=== PATIENT | male | born 1955 | race Caucasian/White ===

== ENCOUNTER 2016-04-16 15:20 | Emergency (ER) | payer OTHER ==
[~2016-04-16] VITALS: Ht 180.3 cm; Wt 79.4 kg
[~2016-04-16 15:20] MED LIST: ASPIR 8181 MG PO; MULTIVITAMIN1 TAB PO; NORCO 325 MG-51 TAB PO; SIMVASTATIN10 MG PO
--- NOTE | 2016-04-16 15:35 | ED AMS/SEIZURE/WEAK/DIZZY ---
History of Present Illness General Chief Complaint: Seizure Stated Complaint: BIBA SEIZURE Source: patient, old records, EMS Exam Limitations: no limitations Vital Signs & Intake/Output Vital Signs & Intake/Output Vital Signs Date Time Temp Pulse Resp B/P Pulse O2 O2 Flow FiO2 Ox Delivery Rate 04/16 1734 96.7 90 18 122/82 99 Nasal 2.0L Cannula 04/16 1528 96.7 97 18 127/76 100 Room Air Allergies Coded Allergies: ibuprofen (UPSETS STOMACH 04/16/16) rofecoxib (RASH 04/16/16) tramadol (SEIZURE 04/16/16) Reconcile Medications Multivitamin (Multiple Vitamins) 1 EACH TABLET 1 TAB PO DAILY SUPPLEMENT ( Reported) Triage Note: 60 YO MALE NI FROM HOME. PT HAD WITNESSED SEIZURE BY HIS MOTHER WHILE LAYING ON THE COUCH. PT DID NOT FALL, NO INJURIES NOTED. ON EMS ARRIVAL PT WAS POST ICTLE. PT ARRIVES ALERT AND ORIENTED X3. STATES HE HAS HAD SEIZURES IN THE PAST AND THEY THINK ITS FROM HIM TAKING ?TRAMADOL. PT DENIES DRUG/ALCOHOL USE. SEIZURE PRECAUTIONS IN PLACE. Triage Nurses Notes Reviewed? yes Onset: Just prior to arrival Duration: minute(s): Timing: remote history Injury Environment: home Severity: moderate No Modifying Factors: none HPI: Patient is a 60-year-old male presenting to the emergency department with chief complaint of seizure prior to arrival. Patient reports that he was laying on the couch, his seizure was witnessed. Lasted a few minutes and then resolved. History of similar symptoms several years ago. He reports that it was from tramadol at that point. He reports he's been on tramadol for pain for the past several days. He said it was "left over' from an old injury. He's been taking 3 a day for the past 3-4 days. Patient denies any urinary incontinence. Denies any falls or pain. No neck pain back pain. No visual changes. Denies any abdominal pain nausea vomiting or fevers. Otherwise has been feeling well. No palpitations. Denies any drug use. Denies alcohol use or smoking. (CLARE FERRERA) Past History Travel History Traveled to [place] past 21 day No Medical History Any Pertinent Medical History? see below for history Neurological: NONE EENT: NONE Cardiovascular: hyperlipidemia Respiratory: NONE Gastrointestinal: NONE Hepatic: NONE Renal: NONE Musculoskeletal: NONE Psychiatric: NONE Endocrine: NONE Blood Disorders: NONE Cancer(s): NONE BILINGUAL TRAINER/Reproductive: NONE Surgical History Surgical History: non-contributory Psychosocial History Who do you live with Spouse Services at Home None What is your primary language [place] Tobacco Use: Never used Family History Hx Contributory? No (CLARE FERRERA) Review of Systems Review of Systems Constitutional: Reports: no symptoms. Comments Review of systems: See HPI, All other systems negative. Constitutional, no chills fever or weight loss HEENT: No visual changes no sore throat no congestion Cardiovascular: No chest pain ,palpitation , orthopnea Skin, no jaundice no rashes Respiratory: No dyspnea cough sputum or hemoptysis GI: No nausea no vomiting : No dysuria No hematuria Muscle skeletal: no back pain, no neck pain, Neurologic: No numbness Psych: No stress anxiety Immunology: No splenectomy or history of AIDS (CLARE FERRERA) Physical Exam Physical Exam General Appearance: well developed/nourished, no apparent distress, alert, awake , comfortable Comments: Well-developed well-nourished person in no acute distress HEENT: extraocular motion intact, no nystagmus. Pupils equally round and reactive to light and accommodation, pupils approximately 2 mm each. Nose is atraumatic. External auditory canal and Tympanic membranes clear. Pharynx normal. No swelling or edema. Neck: Supple, no lymphadenopathy, normal range of motion without pain or tenderness Back: Nontender, no CVA tenderness. Full range of motion Cardiovascular: Regular rate and rhythms no murmurs rubs or gallops, normal JVP Respiratory: Chest nontender. No respiratory distress.breath sounds clear to auscultation bilaterally Abdomen: Soft, nontender nondistended, no appreciable organomegaly. Normal bowel sounds. No ascites Extremity: No edema, no calf tenderness to palpation, normal and equal pulses. Neuro: Alert oriented x3, motor sensory normal, cranial nerves II through XII grossly intact. Cerebellar testing is unremarkable. Skin: No appreciable rash on exposed skin, skin is warm and dry. Psych: Mood and affect is normal, memory and judgment is normal. Core Measures ACS in differential dx? No CVA/TIA Diagnosis: No Severe Sepsis Present: No Septic Shock Present: No (CLARE FERRERA) Progress Differential Diagnosis: MEDICATION REACTION, EPILEPSY, PNEUMONIA, CARDIOMEGALY, CARDIAC ARRHYTHMIA, DEHYDRATION, ORTHOSTATIC HYPOTENSION Plan of Care: Orders Procedure Date/time Status EKG 04/16 174 Active Add-on Test (ER Only) 04/16 1738 Active PROLACTIN 04/16 1602 Complete MISTAKE 04/16 1535 Active Telemetry/[employer] Packages Sealer 04/16 1535 Active URINE DRUG SCREEN FOR ER ONLY 04/16 1535 Active URINALYSIS 04/16 1535 Active TROPONIN LEVEL 04/16 1535 Complete COMPREHENSIVE METABOLIC PANEL 04/16 1535 Complete CBC WITHOUT DIFFERENTIAL 04/16 1535 Complete Laboratory Tests 04/16/16 1602: Anion Gap 20 H, Estimated GFR > 60, BUN/Creatinine Ratio 14.0, Glucose 159 H, Calcium 9.6, Total Bilirubin 0.7, AST 23, ALT 26, Alkaline Phosphatase 94, Troponin I < 0.01, Total Protein 7.7, Albumin 4.6, Globulin 3.1, Albumin/ Globulin Ratio 1.5, Prolactin 48.9 H, CBC w Diff NO MAN DIFF REQ, RBC 4.64 L, MCV 89.8, MCH 30.2, RDW 13.4, MPV 7.2 L, Gran % 68.4, Lymphocytes % 25.3, Monocytes % 5.5, Eosinophils % 0.5, Basophils % 0.3, Absolute Granulocytes 5.7, Absolute Lymphocytes 2.1, Absolute Monocytes 0.5, Absolute Eosinophils 0, Absolute Basophils 0, PUBS MCHC 33.6 Diagnostic Imaging: Viewed by Me: Radiology Read. Discussed w/RAD: Radiology Read. Initial ED EKG: NORMAL SINUS RHYTHM AT 92 BPM Prior EKG: unchanged Comments: On arrival patient is alert and oriented, neurologically intact. No focal deficits. Ambulatory without difficulty. Patient has had history of seizure in the past secondary to tramadol use and patient reports using tramadol over the past several days for pain. Patient was informed of all lab results. Patient refusing urinalysis. Patient educated on stopping tramadol use. He will follow-up with his primary care physician. Patient nontoxic. (RANCHO MEDRANO,CLARE) Departure Departure Time of Disposition: 1742 Disposition: HOME OR SELF CARE Condition: Stable Clinical Impression Primary Impression: Seizure Referrals: MUNIR CASAS (PCP/Family) Additional Instructions: Follow-up with your primary care physician call to make an appointment, if he is unable to see her primary care physician in the next 24 hours return to the emergency department for evaluation. Increase fluids. Stop taking tramadol. Return for worsening symptoms or concerns. Departure Forms: Customer Survey General Discharge Information (CLARE FERRERA) PA/SEQUENCING MACHINE OPERATOR Co-Sign Statement Statement: ED Attending supervision documentation- x I saw and evaluated the patient. I have also reviewed all the pertinent lab results and diagnostic results. I agree with the findings and the plan of care as documented in the PA's/SEQUENCING MACHINE OPERATOR's documentation. [] I have reviewed the ED Record and agree with the PA's/SEQUENCING MACHINE OPERATOR's documentation. [] Additions or exceptions (if any) to the PAs/SEQUENCING MACHINE OPERATOR's note and plan are summarized below: [] (MILDRED LOPEZ,CHANDRA)
--- NOTE | 2016-04-16 16:03 | RADIOLOGY REPORT ---
EXAMINATION: XR CHEST CLINICAL INFORMATION: Syncope. Evaluate for cardiomegaly. COMPARISON: None. TECHNIQUE: PA and lateral views of the chest were obtained. FINDINGS: The lungs are well expanded. There is no focal consolidation, edema, or effusion. No pneumothorax. The cardiomediastinal silhouette is within normal limits. No acute osseous abnormality. IMPRESSION: Clear lungs. Normal heart size.
[2016-04-16 16:23] LABS: ABSOLUTE BASOPHIL COUNT 0 /CUMM (0.0-0.2); ABSOLUTE EOSINOPHIL COUNT 0 /CUMM (0.0-0.7); ABSOLUTE GRANULOCYTE CT 5.7 /CUMM (1.4-6.5); ABSOLUTE LYMPH COUNT 2.1 /CUMM (1.2-3.4); ABSOLUTE MONOCYTE COUNT 0.5 /CUMM (0.10-0.60); BASOPHIL % 0.3 % (0.0-2.0); EOSINOPHIL % 0.5 % (0-5); GRANULOCYTE % 68.4 % (42.2-75.2); HEMATOCRIT 41.6 % (42-52); MEAN CORPUSCULAR HGB 30.2 PG (27.0-31.0); MEAN CORPUSCULAR HGB CONC 33.6 G/DL (33.0-37.0); MEAN CORPUSCULAR VOLUME 89.8 FL (80.0-94.0); MEAN PLATELET VOLUME 7.2 FL (7.4-10.4); PLATELET COUNT 330 /CUMM (130-400); RBC DISTRIBUTION WIDTH 13.4 % (11.5-14.5); RED BLOOD CELL CT 4.64 /CUMM (4.70-6.10); WHITE BLOOD CELL COUNT 8.4 /CUMM (4.8-10.8)
[2016-04-16 17:34] VITALS: BP 122/82
== END 2016-04-16 18:10 ==
LOC: ERH 15:20
PROVIDERS: Physician Assistant
DX: R56.9 Unspecified convulsions (principal)
CPT/HCPCS: 80307; 93005; 93010; 96374; J2405

== ENCOUNTER 2017-11-02 12:42 | Inpatient (IN) | payer OTHER ==
[~2017-11-02] VITALS: Ht 180.3 cm; Wt 69.9 kg
[~2017-11-02 12:42] MED LIST changes: +ATIVAN1 M1 PO; +MULTIPLE VITAM1 EAC2 PO; -MULTIVITAMIN1 TAB PO; +ZANTAC300 MG PO
--- NOTE | 2017-11-02 12:50 | ED GENERAL ADULT ---
History of Present Illness General Chief Complaint: ETOH/Drug Related Complaint Stated Complaint: BIBA, ETOH, UNRESPONSIVE Source: family, old records, EMS, police Exam Limitations: intoxication Vital Signs & Intake/Output Vital Signs & Intake/Output Vital Signs Date Time Temp Pulse Resp B/P B/P Pulse O2 O2 Flow FiO2 Mean Ox Delivery Rate 11/03 08 98.0 85 18 122/64 11/03 0800 98.3 88 18 122/64 11/03 0410 98.9 84 20 120/70 97 Room Air 11/03 0200 98.1 69 18 140/79 11/03 0200 98.1 69 18 140/79 94 Room Air 11/03 0000 118 18 128/70 11/02 2358 97.6 118 20 128/70 99 Room Air 11/02 2353 97.6 124 20 140/82 11/02 2326 98.0 124 20 132/90 99 Room Air 11/02 2255 98.0 130 22 144/90 11/02 2142 98.3 118 16 128/67 99 Room Air 11/02 1858 98.1 107 16 131/74 99 Room Air 11/02 1623 136/91 11/02 1442 96.9 106 15 139/97 98 Room Air Room Air 11/02 1312 98 Room Air 11/02 1244 96.6 109 19 125/80 95 Room Air ED Intake and Output 11/03 0000 11/02 1200 Intake Total 2000 Output Total 400 Balance 1600 Intake, IV 2000 Intake, Oral Output, Urine 400 Allergies Coded Allergies: ibuprofen (UPSETS STOMACH 04/16/16) Triage Nurses Notes Reviewed? yes HPI: Patient was found unresponsive at home with a empty bottle of vodka next to him. There is also question of taking tramadol. Patient was given 0.8 mg of IV Narcan by the diver helper. The diver helper states that as he was actively pushing the Narcan the patient sat up and looked at him but then later back down and went back to sleep. Patient has been protecting his airway. Patient is nonresponsive and not following any commands. Patient was sitting on the couch when he felt was found. (David LOPEZ,Lico Loredo) Reconcile Medications Multivitamin (Multiple Vitamins) 1 EACH TABLET 1 TAB PO DAILY VITAMIN SUPPORT (Reported) Ranitidine HCl (Zantac) 300 MG TABLET 1 TAB PO QPM STOMACH ACID (Jose Collins DO) Past History Travel History Traveled to [place] past 21 day No Medical History Any Pertinent Medical History? see below for history Neurological: NONE EENT: NONE Cardiovascular: hyperlipidemia Respiratory: NONE Gastrointestinal: NONE Hepatic: NONE Renal: NONE Musculoskeletal: NONE Psychiatric: NONE Endocrine: NONE Blood Disorders: NONE Cancer(s): NONE ART SPECIALIST/Reproductive: NONE Surgical History Surgical History: non-contributory Psychosocial History Who do you live with Spouse Services at Home None What is your primary language Hungarian Tobacco Use: Cognitive Impairment Family History Hx Contributory? No (David LOPEZ,Lico Loredo) Review of Systems Review of Systems Constitutional: Reports: see HPI. (David LOPEZ,Lico Loredo) Physical Exam Physical Exam General Appearance: lethargic, intoxicated Head: atraumatic, normal appearance Eyes: Bilateral: PERRL, EOMI. Ears, Nose, Throat: normal pharynx, normal ENT inspection Neck: normal inspection, supple Respiratory: normal breath sounds, no respiratory distress, lungs clear Cardiovascular: regular rate/rhythm, normal peripheral pulses Gastrointestinal: normal bowel sounds, soft, no organomegaly Back: normal inspection Extremities: normal inspection, normal capillary refill, normal range of motion, no edema Neurologic/Psych: UNRESPONSIVE, BUT WILLOPENHIS EYES,BUT NOT TO COMMAND Skin: intact, normal color, warm/dry Core Measures ACS in differential dx? No CVA/TIA Diagnosis: No Sepsis Present: No Sepsis Focused Exam Completed? No (David LOPEZ,Lico Loredo) Progress Differential Diagnoses I considered the following diagnoses in my evaluation of the patient: [ INTOXICATION, AMI, ELECTROLYTE ABNORMALITY] Plan of Care: Orders Procedure Date/time Status Regular Diet 11/03 B Active Change service to 11/03 0821 Active MAGNESIUM 11/03 06 Active BASIC ELECTROLYTES PLUS BUN&CR 11/03 0600 Active Weight 11/03 033 Complete Vital Signs 11/03 338 Active Teach/Educate 11/03 338 Active Pain Treatment and Response 11/03 338 Active Nutritional Intake, Monitor 11/03 338 Active Isolation 11/03 338 Active Intake & Output 11/03 338 Active Patient Care Conference 11/03 338 Active Activity/Ambulation 11/03 338 Active Pathway - chart 11/03 0145 Active Lab Add-on Test 11/03 0003 Active House Staff 11/03 UNK Active Lab Add-on Test 11/03 UNK Active VTE Mechanical Prophylaxis 11/03 UNK Active MISSING MEDICATION FORM 11/03 UNK Active SOCIAL WORK CONSULT 11/03 UNK Active PSYCHIATRIC CONSULT 11/03 UNK Active ED Holding Orders 11/02 2343 Active Admit to inpatient 11/02 2343 Active Vital Signs 11/02 2343 Active Code Status 11/02 2343 Active Patient Data 11/02 2340 Active CIWA 11/02 2255 Active Restraint- Discontinue 11/02 1640 Active Restraint- Medical 11/02 1359 Complete Continuous Observation Monitor 11/02 1359 Active Intake & Output 11/02 1305 Active GLYCOSYLATED HGB 11/02 1301 Complete FOLIC ACID 11/02 1301 Complete VITAMIN B12 11/02 1301 Complete Straight Cath 11/02 1249 Complete URINE DRUGS OF ABUSE 11/02 1249 Complete URINALYSIS 11/02 1249 Complete TROPONIN LEVEL 11/02 1249 Complete ETHANOL 11/02 1249 Complete COMPREHENSIVE METABOLIC PANEL 11/02 1249 Complete CBC WITHOUT DIFFERENTIAL 11/02 1249 Complete EKG 11/02 1249 Active Current Medications Sig/Leelee Start time Last Medication Dose Stop Time Status Admin Enoxaparin Sodium 40 MG DAILY 11/03 0900 AC 11/03 (Lovenox) 0810 Famotidine 20 MG DAILY 11/03 0900 AC (Pepcid) Folic Acid 1 MG DAILY 11/03 0900 AC 11/03 (Folic Acid) 0810 Multivitamins 1 TAB DAILY 11/03 0900 AC 11/03 (Theragran Vitamins) 0810 Thiamine HCl 100 MG DAILY 11/03 0430 AC 11/03 (Vitamin B1) 0817 Acetaminophen 650 MG Q6P PRN 11/03 014 AC (Tylenol) Lorazepam See Dose Q1P PRN 11/03 014 AC (Ativan) Insts (1) Lorazepam 2 MG Q6H 11/03 0145 AC 11/03 (Ativan) 0810 Magnesium Oxide 400 MG BID 11/03 014 AC 11/03 (Mag-Ox) 0810 Sodium Chloride 1,000 ML .Q8H 11/03 0145 AC 11/03 (Normal Saline 0.9%) 11/03 0944 0251 Dose Instructions: (1)Lorazepam (Ativan): See admin criteria Laboratory Tests 11/02/17 1301: Serum Alcohol 469.0 11/02/17 1301: Anion Gap 14, Estimated GFR > 60, BUN/Creatinine Ratio 8.3, Glucose 118 H, Hemoglobin A1c 5.7, Calcium 8.5, Total Bilirubin 0.2, AST 51, ALT 24, Alkaline Phosphatase 63, Troponin I 0.01, Total Protein 6.1 L, Albumin 3.5, Globulin 2.6 , Albumin/Globulin Ratio 1.3, Vitamin B12 328, Folate 7.9, CBC w Diff NO MAN DIFF REQ, RBC 3.71 L, MCV 88.6, MCH 30.5, MCHC 34.5, RDW 14.7 H, MPV 6.9 L, Gran % 51.2, Lymphocytes % 40.9, Monocytes % 5.0, Eosinophils % 2.6, Basophils % 0.3, Absolute Granulocytes 5.0, Absolute Lymphocytes 4.0 H, Absolute Monocytes 0.5, Absolute Eosinophils 0.3, Absolute Basophils 0, Urine Opiates Screen < 100, Methadone Screen < 40, Barbiturate Screen < 60, Ur Phencyclidine Scrn < 6.00, Amphetamines Screen < 100, U Benzodiazepines Scrn < 85, Urine Cocaine Screen < 50, Urine Cannabis Screen < 5.00, Urinalysis MOD H, Urine Color STRAW, Urine Clarity CLEAR, Urine pH 6.0, Ur Specific [place] <= 1.005, Urine Protein NEG, Urine Ketones NEG, Urine Nitrite NEG, Urine Bilirubin NEG, Urine Urobilinogen 0.2, Ur Leukocyte Esterase NEG, Ur Microscopic SEDIMENT EXAMINED, Urine RBC RARE , Urine Hemoglobin MOD H, Urine Glucose NEG Initial ED EKG: NSR, nonspecific ST T wave chg Prior EKG: unchanged Hand-Off Endorsed To: Jose Collins DO Endorsed Time: 1899 Pending: other (SOBRIETY) (David LOPEZ,Lico Loredo) Departure Departure Disposition: HOME OR SELF CARE Condition: Stable Clinical Impression Primary Impression: Alcohol intoxication Referrals: Nicolle Ferrer APRN (PCP/Family) Additional Instructions: RETURN IF SYMPTOMS WORSEN OR FOR ANY CONCERNS Departure Forms: Customer Survey General Discharge Information (David LOPEZ,Lico Loredo) Admission Note Spoke With: Javon Gilmore MD Documentation of Exam: Documentation of any treatments & extenuating circumstances including Concerns Regarding Discharge (functional status, medication knowledge or non-compliance, living conditions, etc.) that warrant an admission rather than observation: [The patient needs admission for IV Ativan, and neurology neurology evaluations every 6 hours, seizure precautions] He has his CIWA scores 17 with a 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 No recent admissions for alcohol withdrawal. He was signed out to me by Dr. Hernandez at 7 PM (Jose Collins DO) Critical Care Note Critical Care Note Critical Care Time: non-applicable (David LOPEZ,Lico Loredo)
[2017-11-02 13:16] LABS: ABSOLUTE BASOPHIL COUNT 0 /CUMM (0.0-0.2); ABSOLUTE EOSINOPHIL COUNT 0.3 /CUMM (0.0-0.7); ABSOLUTE MONOCYTE COUNT 0.5 /CUMM (0.10-0.60); BASOPHIL % 0.3 % (0.0-2.0); EOSINOPHIL % 2.6 % (0-5); GRANULOCYTE % 51.2 % (42.2-75.2); MEAN CORPUSCULAR HGB 30.5 PG (27.0-31.0); MEAN CORPUSCULAR HGB CONC 34.5 G/DL (33.0-37.0); MEAN CORPUSCULAR VOLUME 88.6 FL (80.0-94.0); MEAN PLATELET VOLUME 6.9 FL (7.4-10.4); PLATELET COUNT 291 /CUMM (130-400); RBC DISTRIBUTION WIDTH 14.7 % (11.5-14.5); RED BLOOD CELL CT 3.71 /CUMM (4.70-6.10); WHITE BLOOD CELL COUNT 9.9 /CUMM (4.8-10.8)
[2017-11-02 13:53] LABS: HEMATOCRIT 32.8 % (42-52)
[2017-11-02 22:55] VITALS: BP 144/90
--- NOTE | 2017-11-02 23:48 | History & Physical ---
Alex Castillo 11/02/17 0467: General Information and HPI MD Statement: I have seen and personally examined JAMES ALICEA and documented this H&P. The patient is a 62 year old M who presented with a patient stated chief complaint of [intoxicated/unresponsive episode at home]. 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 He later admitted taking several tramadol pills as well. Paramedics gave patient 0.8mg Narcan IV which woke patient up. On interview, patient has no complaints. States that "I am an alcoholic", has good insight into his disease. States he was clean for 15 years, then started drinking, sobered up for another 4 years, and now is drinking again. States "I'm shocked how quickly taking one drink can turn into all of this" . States he was last here on October 30, and has been drinking every day since. States that "I might have overdid it this time". Does admit to some anxiety, fine tremors, but denies any hallucination and paranoia. States he has had many IOP and inpatient rehab stays, but wants to quit and is hopeful this admission will help him wean off alcohol. Denies fevers/chills/night sweats/chest pain/sob/abdominal pain/nausea/vomiting/ diarrhea PMH: as above Allergies: Denies Sx: noncontributory Soc: as above, denies smoking, denies other drug usage ROS negative Past History Travel History Traveled to [place] past 21 day No Medical History Neurological: NONE EENT: NONE Cardiovascular: hyperlipidemia Respiratory: NONE Gastrointestinal: NONE Hepatic: NONE Renal: NONE Musculoskeletal: NONE Psychiatric: NONE Endocrine: NONE Blood Disorders: NONE Cancer(s): NONE FOOD STOREROOM CLERK/Reproductive: NONE Isolation History: Standard Surgical History Surgical History: non-contributory Past Family/Social History Psychosocial History Services at Home: None Review of Systems Review of Systems Constitutional: Reports: see HPI. Exam & Diagnostic Data Last 24 Hrs of Vital Signs/I&O Vital Signs Date Time Temp Pulse Resp B/P B/P Pulse O2 O2 Flow FiO2 Mean Ox Delivery Rate 11/03 0200 98.1 69 18 140/79 11/03 0200 98.1 69 18 140/79 94 Room Air 11/03 0000 118 18 128/70 11/02 2358 97.6 118 20 128/70 99 Room Air 11/02 2353 97.6 124 20 140/82 11/02 2326 98.0 124 20 132/90 99 Room Air 11/02 2255 98.0 130 22 144/90 11/02 2142 98.3 118 16 128/67 99 Room Air 11/02 1858 98.1 107 16 131/74 99 Room Air 11/02 1623 136/91 11/02 1442 96.9 106 15 139/97 98 Room Air Room Air 11/02 1312 98 Room Air 11/02 1244 96.6 109 19 125/80 95 Room Air Intake & Output 11/03 0800 11/03 0000 11/02 1600 Intake Total 1000 2000 Output Total 400 Balance 1000 2000 -400 Intake, IV 1000 2000 Intake, Oral Output, Urine 400 Patient 154 lb Weight Weight Bed scale Measurement Method Physical Exam General Appearance Alert, Oriented X3, Cooperative, No Acute Distress Skin No Rashes Cardiovascular Regular Rate, Normal S1, Normal S2 Lungs Clear to Auscultation, Normal Air Movement Abdomen Soft, No Tenderness Neurological Strength at 5/5 X4 Ext, Sensation Intact Extremities fine tremor noted Last 24 Hrs of Labs/Hal: Laboratory Tests 11/02/17 1301: Serum Alcohol 469.0 11/02/17 1301: Anion Gap 14, Estimated GFR > 60, BUN/Creatinine Ratio 8.3, Glucose 118 H, Hemoglobin A1c Pending, Calcium 8.5, Total Bilirubin 0.2, AST 51, ALT 24, Alkaline Phosphatase 63, Troponin I 0.01, Total Protein 6.1 L, Albumin 3.5, Globulin 2.6, Albumin/Globulin Ratio 1.3, Vitamin B12 328, Folate 7.9, CBC w Diff NO MAN DIFF REQ, RBC 3.71 L, MCV 88.6, MCH 30.5, MCHC 34.5, RDW 14.7 H, MPV 6.9 L, Gran % 51.2, Lymphocytes % 40.9, Monocytes % 5.0, Eosinophils % 2.6, Basophils % 0.3, Absolute Granulocytes 5.0, Absolute Lymphocytes 4.0 H, Absolute Monocytes 0.5, Absolute Eosinophils 0.3, Absolute Basophils 0, Urine Opiates Screen < 100, Methadone Screen < 40, Barbiturate Screen < 60, Ur Phencyclidine Scrn < 6.00, Amphetamines Screen < 100, U Benzodiazepines Scrn < 85, Urine Cocaine Screen < 50, Urine Cannabis Screen < 5.00, Urinalysis MOD H, Urine Color STRAW, Urine Clarity CLEAR, Urine pH 6.0, Ur Specific [place] <= 1.005, Urine Protein NEG, Urine Ketones NEG, Urine Nitrite NEG, Urine Bilirubin NEG, Urine Urobilinogen 0.2, Ur Leukocyte Esterase NEG, Ur Microscopic SEDIMENT EXAMINED, Urine RBC RARE, Urine Hemoglobin MOD H, Urine Glucose NEG Assessment/Plan Assessment: Mr. Alicea is a 62yo M w/ PMH of hx of DT, HLD, alcohol use disorders, hx of SI attempts, presented to ER w/ CC of alcohol intoxication after being sober for 5 years, who recently pickedup drinking and was found unresponsive on 10/30/2017, sent to ER, discharged, continued drinking, and now came back. He was tachycardic in the ED with CIWA scores up to 17 and will be admitted for management of DT as he has had withdrawal seizures in the past. Serum alcohol was 469 on admission. Problem list/Assessment/Hospital Course: #Alcohol detox with history of DT #Chronic normocytic anemia, secondary to alcohol use #History of suicidal attempts #Hypokalemia #Cholelithiasis without acute cholecystitis #PMH of alcohol use disorder, hyperlipidemia - Admit to general medicine - Vitals per protocol, monitor I&O per protocol. - Start Ativan 2mg q 6 and IV Ativan PRN CIWA - Supplements including Folic Acid/B12/Thiamine/Multivitamin - Replete K w/ oral K-dur. - Continue all home meds - Pending Psych Consult in the AM - Pending Social Work consul in the AM - Check folic acid/B12/Mg/PO4-. Will replete if low - Close monitor for seizure activities. - Pain per pathway DVT prophylaxis Lovenox + ALPS Regular Diet IV Access: Peripheral IV Full Code Dispo: unknown As Ranked By This Provider Problem List: 1. Alcohol intoxication 2. Alcohol dependence with intoxication Core Measures/Misc (12/08) Acute Coronary Syndrome ACS Diagnosis: No Congestive Heart Failure Congestive Heart Failure Diagnosis No Cerebrovascular Accident CVA/TIA Diagnosis: No VTE (View Protocol) VTE Risk Factors Age>40 No Mechanical VTE Prophylaxis d/t N/A MechProphylax Ordered No VTE Pharm Prophylaxis d/t NA PharmProphylax ordered Sepsis (View protocol) Sepsis Present: No If YES complete Sepsis Event Note If YES complete Sepsis Event Note Laurel Basurto 11/02/17 2597: Core Measures/Misc (12/08) Sepsis (View protocol) If YES complete Sepsis Event Note If YES complete Sepsis Event Note Resident Review Statement Resident Statement: examined this patient, discussed with internet marketer, agreed with internet marketer, discussed with family, reviewed EMR data (avail), discussed with nursing , discussed with case mgmt, reviewed images, amended to note Other Findings: Mr. 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 Rest of history/ROS as above HPI. Patient presented with a clinical picture of alcohol intoxication with abnormal serum alcohol level, that he might not yet be in DT phase based on this serum alcohol leve/PE, however preventive measure and appropriate alcohol detox process should start and taper per clinical course. On admission, Vitals: Stable afebrile, tachycardia above 100, RR 20, BP 142/90, 95% room air Physical exam as above. Pertinent findings include fine tremors of BUEs, however otherwise grossly normal exam. Patient's fully conversational and has insight regarding his alcohol use disorders. Denied SI. -CBC: No leukocytosis, H/H 11.3/42.8, PLT 291 -CMP: Hypokalemia 3.2, otherwise unremarkable -UA/Microbiology: Clear for UTI. Serum alcohol 469, U tox negative -CT Ab 10/30: Cholelithiasis without additional evidence for acute cholecystitis. No inflammatory changes of the abdomen or pelvis. -EKG: NSR w/o significant ST-T abnormalities, unchanged from previous. -Last Echo: Not in our system -Interventions in ER: Ativan 2 mg IV 2, Zofran IV 4 mg 1 Problem list/Assessment/Hospital Course: #Alcohol detox with history of DT #Chronic normocytic anemia, secondary to alcohol use #History of suicidal attempts #Hypokalemia #Cholelithiasis without acute cholecystitis #PMH of alcohol use disorder, hyperlipidemia - Admit to general medicine - Vitals per protocol, monitor I&O per protocol. - Start Ativan 2mg q 6 and IV Ativan PRN CIWA - Supplements including Folic Acid/B12/Thiamin/Multivitamin - Replete K w/ oral K-dur. - Continue all home meds. - Pending Psych Consult in the AM - Pending Social Work consul in the AM - Check folic acid/B12. - Close monitor for seizure activities. - Pain per pathway DVT prophylaxis Lovenox + ALPS Regular Diet IV Access: Peripheral IV Full Code Dispo: unknown Mando LOPEZJavon 11/03/17 0456: General Information and HPI MD Statement: I have seen and personally examined JAMES ALICEA and documented this H&P. The patient is a 62 year old M who presented with a patient stated chief complaint of intoxication]. Source of Information: old records Allergies/Medications Allergies: Coded Allergies: ibuprofen (UPSETS STOMACH 04/16/16) Home Med list Multivitamin (Multiple Vitamins) 1 EACH TABLET 1 TAB PO DAILY VITAMIN SUPPORT (Reported) Ranitidine HCl (Zantac) 300 MG TABLET 1 TAB PO QPM STOMACH ACID Past History Medical History Cardiovascular: hyperlipidemia Past Family/Social History Psychosocial History Smoking Status: Never Smoked ETOH Use: alcoholic Illicit Drug Use: denies illicit drug use Employment History Employment Disability Review of Systems Review of Systems Constitutional: Reports: see HPI. Exam & Diagnostic Data Last 24 Hrs of Vital Signs/I&O Vital Signs Date Time Temp Pulse Resp B/P B/P Pulse O2 O2 Flow FiO2 Mean Ox Delivery Rate 11/03 0410 98.9 84 20 120/70 97 Room Air 11/03 0200 98.1 69 18 140/79 11/03 0200 98.1 69 18 140/79 94 Room Air 11/03 0000 118 18 128/70 11/02 2358 97.6 118 20 128/70 99 Room Air 11/02 2353 97.6 124 20 140/82 11/02 2326 98.0 124 20 132/90 99 Room Air 11/02 2255 98.0 130 22 144/90 11/02 2142 98.3 118 16 128/67 99 Room Air 11/02 1858 98.1 107 16 131/74 99 Room Air 11/02 1623 136/91 11/02 1442 96.9 106 15 139/97 98 Room Air Room Air 11/02 1312 98 Room Air 11/02 1244 96.6 109 19 125/80 95 Room Air Intake & Output 11/03 0800 11/03 0000 11/02 1600 Intake Total 1000 2000 Output Total 400 Balance 1000 1999 -400 Intake, IV 1000 1999 Intake, Oral Output, Urine 400 Patient 154 lb Weight Weight Bed scale Measurement Method Physical Exam General Appearance Alert, Oriented X3, Cooperative, No Acute Distress Skin No Rashes, No Breakdown Skin Temp/Moisture Exam: Cool/Dry Sepsis Skin Exam (color): Normal for Ethnicity HEENT Atraumatic, PERRLA, EOMI Neck Supple, No JVD Lymphatic Axillary nl, Cervical nl Cardiovascular Regular Rate, Normal S1, Normal S2 Lungs Clear to Auscultation, Normal Air Movement Abdomen Normal Bowel Sounds, Soft, No Tenderness Neurological Normal Gait, Normal Speech Extremities fine tremor noted Last 24 Hrs of Labs/Hal: Laboratory Tests 11/02/17 1301: Serum Alcohol 469.0 11/02/17 1301: Anion Gap 14, Estimated GFR > 60, BUN/Creatinine Ratio 8.3, Glucose 118 H, Hemoglobin A1c Pending, Calcium 8.5, Total Bilirubin 0.2, AST 51, ALT 24, Alkaline Phosphatase 63, Troponin I 0.01, Total Protein 6.1 L, Albumin 3.5, Globulin 2.6, Albumin/Globulin Ratio 1.3, Vitamin B12 328, Folate 7.9, CBC w Diff NO MAN DIFF REQ, RBC 3.71 L, MCV 88.6, MCH 30.5, MCHC 34.5, RDW 14.7 H, MPV 6.9 L, Gran % 51.2, Lymphocytes % 40.9, Monocytes % 5.0, Eosinophils % 2.6, Basophils % 0.3, Absolute Granulocytes 5.0, Absolute Lymphocytes 4.0 H, Absolute Monocytes 0.5, Absolute Eosinophils 0.3, Absolute Basophils 0, Urine Opiates Screen < 100, Methadone Screen < 40, Barbiturate Screen < 60, Ur Phencyclidine Scrn < 6.00, Amphetamines Screen < 100, U Benzodiazepines Scrn < 85, Urine Cocaine Screen < 50, Urine Cannabis Screen < 5.00, Urinalysis MOD H, Urine Color STRAW, Urine Clarity CLEAR, Urine pH 6.0, Ur Specific [place] <= 1.005, Urine Protein NEG, Urine Ketones NEG, Urine Nitrite NEG, Urine Bilirubin NEG, Urine Urobilinogen 0.2, Ur Leukocyte Esterase NEG, Ur Microscopic SEDIMENT EXAMINED, Urine RBC RARE, Urine Hemoglobin MOD H, Urine Glucose NEG Core Measures/Misc (12/08) Sepsis (View protocol) If YES complete Sepsis Event Note If YES complete Sepsis Event Note Attending MD Review Statement Attending Statement Attending MD Statement: examined this patient, discuss w/resident/PA/WARDROBE STYLIST, agreed w/resident/PA/WARDROBE STYLIST, reviewed EMR data (avail), amended to note Attending Assessment/Plan: This patient is a 62-year-old white male with a significant past medical history for DTs 2011 s/p ICU stay, HLD, alcohol use disorders, SI attempts, presented to ER w/ CC of alcohol intoxication after being sober for 5 years, who recently relapsed. He was found unresponsive on 10/30/2017, sent to ER, discharged, continued drinking, and now comes back for detox. Upon evaluation in the emergency department patient had a significantly elevated CIWA score of 17, hypokalemia 3.2, EKG: NSR w/o significant ST-T abnormalities, unchanged from previous and serum alcohol 469. The patient will be admitted to general medicine floor for alcohol withdrawal. Start Ativan taper, replenish supplements , replete potassium, a.m. consults with psychiatry and social work. Full Code
[2017-11-02 23:53] VITALS: BP 140/82
[2017-11-03] VITALS (8 sets, daily range): BP systolic 120–150; BP diastolic 64–82
--- NOTE | 2017-11-03 07:50 | PN- Housestaff ---
Subjective Follow-up For: Alcohol withdrawal Anxiety Subjective: Patient seen and examined. Overnight his CIWA score was 6 for tremor and anxiety. The patient has no complaints at the time of interview. His vitals are stable, heart rate 84, blood pressure 120/70. The patient continues to have mild tremor at the time of interview. Review of Systems Constitutional: Reports: no symptoms. Cardiovascular: Reports: no symptoms. Respiratory: Reports: no symptoms. Gastrointestinal: Reports: no symptoms. Genitourinary: Reports: no symptoms. Musculoskeletal: Reports: no symptoms. Neurological/Psychological: Reports: anxiety, tremors. Objective Last 24 Hrs of Vital Signs/I&O Vital Signs Date Time Temp Pulse Resp B/P B/P Pulse O2 O2 Flow FiO2 Mean Ox Delivery Rate 11/03 1205 98.8 80 20 132/71 100 Room Air 11/03 0800 98.0 85 18 122/64 11/03 0800 98.3 88 18 122/64 11/03 0410 98.9 84 20 120/70 97 Room Air 11/03 0200 98.1 69 18 140/79 11/03 0200 98.1 69 18 140/79 94 Room Air 11/03 0000 118 18 128/70 11/02 2358 97.6 118 20 128/70 99 Room Air 11/02 2353 97.6 124 20 140/82 11/02 2326 98.0 124 20 132/90 99 Room Air 11/02 2255 98.0 130 22 144/90 11/02 2142 98.3 118 16 128/67 99 Room Air 11/02 1858 98.1 107 16 131/74 99 Room Air 11/02 1623 136/91 Intake & Output 11/03 1600 11/03 0800 11/03 0000 Intake Total 1000 2000 Output Total Balance 1000 2000 Intake, IV 1000 2000 Patient 154 lb Weight Weight Bed scale Measurement Method Physical Exam General Appearance: Alert, Oriented X3, Cooperative, No Acute Distress Skin Temp/Moisture Exam: Warm/Dry Cardiovascular: Regular Rate, Normal S1, Normal S2, No Murmurs Lungs: Clear to Auscultation, Normal Air Movement Abdomen: Normal Bowel Sounds, Soft, No Tenderness Neurological: Normal Speech, Strength at 5/5 X4 Ext, Normal Tone, Sensation Intact, Cranial Nerves 3-12 NL Extremities: No Clubbing, No Cyanosis, No Edema, Normal Pulses Current Medications: Current Medications Sig/Leelee Start time Last Medication Dose Route Stop Time Status Admin Acetaminophen 650 MG Q6P PRN 11/03 0145 AC PO Enoxaparin Sodium 40 MG DAILY 11/03 0900 AC 11/03 SC 0810 Famotidine 20 MG DAILY 11/03 0900 AC 11/03 PO 0945 Folic Acid 1 MG DAILY 11/03 0900 AC 11/03 PO 0810 Gabapentin 300 MG Q8 11/03 1400 AC 11/03 PO 1524 Hydroxyzine HCl 25 MG 4 TIMES/DAY 11/03 1337 AC 11/03 PO 1523 Lorazepam 1.5 MG Q6H 11/03 1400 DC PO Lorazepam 1.5 MG Q6H 11/03 1400 AC PO Lorazepam 0 .STK-MED ONE 11/03 0247 DC PO Lorazepam See Dose Q1P PRN 11/03 144 AC Insts (1) IV Lorazepam 2 MG Q6H 11/03 0145 DC 11/03 PO 1326 Lorazepam 0 .STK-MED ONE 11/02 2347 DC .ROUTE Lorazepam 2 MG ONCE ONE 11/02 2345 DC 11/02 IV 11/02 2346 2351 Lorazepam 2 MG ONCE ONE 11/02 2345 DC 11/02 IV 11/02 2346 2351 Lorazepam 0 .STK-MED ONE 11/02 2302 DC .ROUTE Magnesium Oxide 400 MG BID 11/03 014 AC 11/03 PO 0810 Multivitamins 1 TAB DAILY 11/03 0900 AC 11/03 PO 0810 Ondansetron HCl 4 MG ONCE ONE 11/02 2345 DC 11/02 IV 11/02 2346 2351 Ondansetron HCl 0 .STK-MED ONE 11/02 2302 DC .ROUTE Patient Medication 1 ED ONE ONE 11/03 0900 DC 11/03 Teaching ED 11/03 0901 0945 Potassium Chloride 40 MEQ ONCE ONE 11/03 1345 DC 11/03 PO 11/03 1346 1524 Potassium Chloride 0 .STK-MED ONE 11/03 0247 DC PO Potassium Chloride 40 MEQ ONCE ONE 11/03 0200 DC 11/03 PO 11/03 0201 0251 Sodium Chloride 1,000 ML .Q8H 11/03 0145 DC 11/03 IV 11/03 0944 0251 Thiamine HCl 100 MG DAILY 11/03 0900 DC PO Thiamine HCl 100 MG DAILY 11/03 0430 AC 11/03 PO 0817 Dose Instructions: (1)Lorazepam: See admin criteria Last 24 Hrs of Lab/Hal Results Last 24 Hrs of Labs/Mics: Laboratory Tests 11/03/17 0903: Anion Gap 5, Estimated GFR > 60, BUN/Creatinine Ratio 13.3, Magnesium 1.4 L Orders CIWA Score (last 24 hrs): 6 Assessment/Plan Assessment: Mr. Alicea is a 62yo M w/ PMH of hx of DT 2012 s/p ICU stay, HLD, alcohol use disorders, hx of SI attempts, presented to ER w/ CC of alcohol intoxication after being sober for 5 years, who recently pickedup drinking and was found unresponsive on 10/30/2017, sent to ER, discharged, continued drinking, and now came back. Rest of history/ROS as above HPI. Patient presented with a clinical picture of alcohol intoxication with abnormal serum alcohol level, that he might not yet be in DT phase based on this serum alcohol leve/PE, however preventive measure and appropriate alcohol detox process should start and taper per clinical course. On admission, Vitals: Stable afebrile, tachycardia above 100, RR 20, BP 142/90, 95% room air Physical exam as above. Pertinent findings include fine tremors of BUEs, however otherwise grossly normal exam. Patient's fully conversational and has insight regarding his alcohol use disorders. Denied SI. -CBC: No leukocytosis, H/H 11.3/42.8, PLT 291 -CMP: Hypokalemia 3.2, otherwise unremarkable -UA/Microbiology: Clear for UTI. Serum alcohol 469, U tox negative -CT Ab 10/30: Cholelithiasis without additional evidence for acute cholecystitis. No inflammatory changes of the abdomen or pelvis. -EKG: NSR w/o significant ST-T abnormalities, unchanged from previous. -Last Echo: Not in our system -Interventions in ER: Ativan 2 mg IV 2, Zofran IV 4 mg 1 Problem list/Assessment/Hospital Course: #Alcohol detox with history of DT #Chronic normocytic anemia, secondary to alcohol use #History of suicidal attempts #Hypokalemia #Cholelithiasis without acute cholecystitis #PMH of alcohol use disorder, hyperlipidemia - Admit to general medicine - Vitals per protocol, monitor I&O per protocol. -Decrease Ativan to 1.5 mg every 6 standing dose and IV Ativan PRN CIWA - Supplements including Folic Acid/B12/Thiamin/Multivitamin - Replete K w/ oral K-dur and magnesium with mag ox . - Continue all home meds. -As per psych, for patient's anxiety we can give him gabapentin 300 mg 3 times a day and hydroxyzine 25 mg every 6 hours which can be up titrated to 50 mg every 6 hours. - Pending Social Work consult: states readiness for IOP (lives in [facility]) and continued substance abuse treatment and resumption of AA meetings - Check B12 and folate acid levels normal -Seizure precautions - Pain per pathway DVT prophylaxis Lovenox + ALPS Regular Diet IV Access: Peripheral IV Full Code Dispo: unknown Problem List: 1. ALCOHOL WITHDRAWAL Pain Ratin Pain Location: na Pain Goal: Remain pain free Pain Plan: na Tomorrow's Labs & Rationales: na
--- NOTE | 2017-11-03 12:43 | PN- Att Addend ---
Attending Addendum Attending Brief Note Patient seen and examined, doing okay. Patient is admitted with acute alcohol intoxication. He was feeling somewhat anxious this morning. Vital Signs Date Time Temp Pulse Resp B/P B/P Pulse O2 O2 Flow FiO2 Mean Ox Delivery Rate 11/03 0800 98.0 85 18 122/64 11/03 0800 98.3 88 18 122/64 11/03 0410 98.9 84 20 120/70 97 Room Air 11/03 0200 98.1 69 18 140/79 08/ 0200 98.1 69 18 140/79 94 Room Air 11/03 0000 118 18 128/70 11/02 2358 97.6 118 20 128/70 99 Room Air 11/02 2353 97.6 124 20 140/82 11/02 2326 98.0 124 20 132/90 99 Room Air 11/02 2255 98.0 130 22 144/90 11/02 2142 98.3 118 16 128/67 99 Room Air 11/02 1858 98.1 107 16 131/74 99 Room Air 11/02 1623 136/91 11/02 1442 96.9 106 15 139/97 98 Room Air Room Air 11/02 1312 98 Room Air 11/02 1244 96.6 109 19 125/80 95 Room Air on exam; aox3, nad. cv: s1,s2, rrr resp; clear abd; soft, nt, bs+ ext: no edema Laboratory Tests 11/03 11/02 11/02 0903 1301 1301 Chemistry Sodium (137 - 145 mmol/L) 135 L 145 Potassium (3.5 - 5.1 mmol/L) 3.6 3.2 L Chloride (98 - 107 mmol/L) 102 109 H Carbon Dioxide (22 - 30 mmol/L) 28 22 Anion Gap (5 - 16) 5 14 BUN (9 - 20 mg/dL) 8 L 5 L Creatinine (0.7 - 1.2 mg/dL) 0.6 L 0.6 L Estimated GFR (>60 ml/min) > 60 > 60 BUN/Creatinine Ratio (7 - 25 %) 13.3 8.3 Glucose (65 - 99 mg/dL) 118 H Hemoglobin A1c (4.2 - 5.8 %) 5.7 Calcium (8.4 - 10.2 mg/dL) 8.5 Magnesium (1.6 - 2.3 mg/dL) 1.4 L Total Bilirubin (0.2 - 1.3 mg/dL) 0.2 AST (17 - 59 U/L) 51 ALT (21 - 72 U/L) 24 Alkaline Phosphatase (< 127 U/L) 63 Troponin I (<0.11 ng/ml) 0.01 Total Protein (6.3 - 8.2 g/dL) 6.1 L Albumin (3.5 - 5.0 g/dL) 3.5 Globulin (1.9 - 4.2 gm/dL) 2.6 Albumin/Globulin Ratio (1.1 - 2.2 %) 1.3 Vitamin B12 (239 - 931 pg/mL) 328 Folate (2.76 - 20.0 ng/mL) 7.9 Hematology CBC w Diff NO MAN DIFF REQ WBC (4.8 - 10.8 /CUMM) 9.9 RBC (4.70 - 6.10 /CUMM) 3.71 L Hgb (14.0 - 18.0 G/DL) 11.3 L Hct (42 - 52 %) 32.8 L MCV (80.0 - 94.0 FL) 88.6 MCH (27.0 - 31.0 PG) 30.5 MCHC (33.0 - 37.0 G/DL) 34.5 RDW (11.5 - 14.5 %) 14.7 H Plt Count (130 - 400 /CUMM) 291 MPV (7.4 - 10.4 FL) 6.9 L Gran % (42.2 - 75.2 %) 51.2 Lymphocytes % (20.5 - 51.1 %) 40.9 Monocytes % (1.7 - 9.3 %) 5.0 Eosinophils % (0 - 5 %) 2.6 Basophils % (0.0 - 2.0 %) 0.3 Absolute Granulocytes (1.4 - 6.5 /CUMM) 5.0 Absolute Lymphocytes (1.2 - 3.4 /CUMM) 4.0 H Absolute Monocytes (0.10 - 0.60 /CUMM) 0.5 Absolute Eosinophils (0.0 - 0.7 /CUMM) 0.3 Absolute Basophils (0.0 - 0.2 /CUMM) 0 Toxicology Urine Opiates Screen (>2000 NG/ML) < 100 Methadone Screen (>300 NG/ML) < 40 Barbiturate Screen (>200 NG/ML) < 60 Ur Phencyclidine Scrn (>25 NG/ML) < 6.00 Amphetamines Screen (>1000 NG/ML) < 100 U Benzodiazepines Scrn (>200 NG/ML) < 85 Urine Cocaine Screen (>300 NG/ML) < 50 Urine Cannabis Screen (>50 NG/ML) < 5.00 Serum Alcohol (<10 MG/DL) 469.0 Urines Urinalysis MOD H Urine Color (YEL,AMB,STR) STRAW Urine Clarity (CLEAR) CLEAR Urine pH (5.0 - 8.0) 6.0 Ur Specific [place] (1.001 - 1.035) <= 1.005 Urine Protein (NEG,<30 MG/DL) NEG Urine Ketones (NEG) NEG Urine Nitrite (NEG) NEG Urine Bilirubin (NEG) NEG Urine Urobilinogen (0.1 - 1.0 EU/dl) 0.2 Ur Leukocyte Esterase (NEG) NEG Ur Microscopic SEDIMENT EXAMINED Urine RBC (0 - 5 /HPF) RARE Urine Hemoglobin (NEG) MOD H Urine Glucose (N MG/DL) NEG A/P: 62-year-old male with past medical history significant for alcohol use, alcohol withdrawal seizure, had remained sober for 4 years now reverted back to drinking admitted with acute alcohol intoxication and also feels anxious. Patient also has hypokalemia and hypomagnesemia. Patient currently on Ativan. Will reduce the dose to 1.5 mg every 6 hours. Continue as needed Ativan per CIWA. Continue multivitamin folate and thiamine. Patient seen by psychiatrist who discussed with me verbally, they recommended starting the patient on gabapentin 300 mg 3 times daily. They also recommend starting the patient on hydroxyzine 25 mg every 6 hours as needed. Hydroxyzine can be uptitrated to 50 mg if required per psychiatry please replete magnesium and potassium. DVT px: Lovenox.
--- NOTE | 2017-11-03 14:22 | Cons- Psychiatry ---
Psychiatric Consult Date of Consult: 11/03/17 Reason for Consult: Alcohol detox pt with anxiety, reccs for anxiety? History of Present Illness: Per Medicine H&P Note: "Red Alicea is a 62M with PMH EtOH abuse with withdrawal seizures in the past with last admission at [facility] in 2011 requiring ICU stay for ativan drip, HLD, previous SI/attempts, who was found unresponsive at home with an empty bottle of vodka next to him. He later admitted taking several tramadol pills as well. Paramedics gave patient 0.8mg Narcan IV which woke patient up. On interview, patient has no complaints. States that "I am an alcoholic", has good insight into his disease. States he was clean for 15 years, then started drinking, sobered up for another 4 years, and now is drinking again. States "I'm shocked how quickly taking one drink can turn into all of this" . States he was last here on October 30, and has been drinking every day since. States that "I might have overdid it this time". Does admit to some anxiety, fine tremors, but denies any hallucination and paranoia. States he has had many IOP and inpatient rehab stays, but wants to quit and is hopeful this admission will help him wean off alcohol." Chart and labs reviewed. Case discussed with Dr. Llanos and medical attending. On exam, patient had sitter at bedside who stepped out of the room during interview. Patient reports that he recently relapsed after a period of 4 years of sobriety. Patient states stressor for relapse was relational difficulties with his , undergoing separation, and baseline anxiety which worsens at times of stress. Patient reports that he had been going to AA meetings with a sponsor 4 times a week but then decrease that to once or twice a week and sometimes skipped weeks which he felt made him more susceptible to relapse. Patient started drinking vodka, does have a history of seizures 3 during alcohol withdrawal which he is managed at home (patient states he is never come to the hospital for management of withdrawal seizure). Patient states that he drinks to mitigate his anxiety. 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 Patient states that he is very concerned that his drinking mainly to him harming someone in some kind of unintentional accident, states readiness for IOP (lives in [place]) and continued substance abuse treatment and resumption of AA meetings. Patient states the sponsor has been contacted and is aware that he is in the hospital for management of withdrawal. Patient had just received IV Ativan prior to interview, still appears tremulous, states that he sees flickering lights but that is going away, reports some nausea typically but feels he could eat lunch today. Patient denies current SI/ HI/VH/SIB. Patient reports that his anxiety consists of racing thoughts, inability to "turn his mind off," has been present since childhood, denies panic attacks. Patient denies any past anxiolytic use. Patient states he drinks to mitigate anxiety, however anxiety isn't worsens during withdrawal. Patient states that anxiety interferes with his sleep and his ability to concentrate. Reports that he is eating well other than when he is feeling sick from withdrawal. Denies ssx of psychosis, levon, trauma history. Allergies: Coded Allergies: ibuprofen (UPSETS STOMACH 04/16/16) Current Medications: Current Medications Sig/Leelee Start time Last Medication Dose Route Stop Time Status Admin Acetaminophen 650 MG Q6P PRN 11/03 0145 AC PO Enoxaparin Sodium 40 MG DAILY 11/03 0900 AC 11/03 SC 0810 Famotidine 20 MG DAILY 11/03 0900 AC 11/03 PO 0945 Folic Acid 1 MG DAILY 11/03 0900 AC 11/03 PO 0810 Gabapentin 300 MG Q8 11/03 1400 AC PO Hydroxyzine HCl 25 MG 4 TIMES/DAY 11/03 1337 AC PO Lorazepam 1.5 MG Q6H 11/03 1400 DC PO Lorazepam 1.5 MG Q6H 11/03 1400 AC PO Lorazepam 0 .STK-MED ONE 11/03 0247 DC PO Lorazepam See Dose Q1P PRN 11/03 0145 AC Insts (1) IV Lorazepam 2 MG Q6H 11/03 014 DC 11/03 PO 1326 Lorazepam 0 .STK-MED ONE 11/02 2347 DC .ROUTE Lorazepam 2 MG ONCE ONE 11/02 2345 DC 11/02 IV 11/02 2346 2351 Lorazepam 2 MG ONCE ONE 11/02 2345 DC 11/02 IV 11/02 2346 2351 Lorazepam 0 .STK-MED ONE 11/02 2302 DC .ROUTE Magnesium Oxide 400 MG BID 11/03 014 AC 11/03 PO 0810 Multivitamins 1 TAB DAILY 11/03 0900 AC 11/03 PO 0810 Ondansetron HCl 4 MG ONCE ONE 11/02 2345 DC 11/02 IV 11/02 2346 2351 Ondansetron HCl 0 .STK-MED ONE 11/02 2302 DC .ROUTE Patient Medication 1 ED ONE ONE 11/03 0900 DC 11/03 Teaching ED 11/03 0901 0945 Potassium Chloride 40 MEQ ONCE ONE 11/03 1345 DC PO 11/03 1346 Potassium Chloride 0 .STK-MED ONE 11/03 0247 DC PO Potassium Chloride 40 MEQ ONCE ONE 11/03 0200 DC 11/03 PO 11/03 0201 0251 Sodium Chloride 1,000 ML .Q8H 11/03 0145 DC 11/03 IV 11/03 0944 0251 Thiamine HCl 100 MG DAILY 11/03 0900 DC PO Thiamine HCl 100 MG DAILY 11/03 0430 AC 11/03 PO 0817 Dose Instructions: (1)Lorazepam: See admin criteria Past History Past Medical History Neurological: NONE EENT: NONE Cardiovascular: hyperlipidemia Respiratory: NONE Gastrointestinal: NONE Hepatic: NONE Renal: NONE Musculoskeletal: NONE Psychiatric: alcohol dependence, anxiety, depression Endocrine: NONE Blood Disorders: NONE Cancer(s): NONE CONTROL INTEGRATION ENGINEER/Reproductive: NONE Past Surgical History Surgical History: non-contributory Psychosocial History Strengths/Capabilities: Good insight, future oriented, willing to engage in treatment, no psychosis. Physical Limitations (Interventions): Currently undergoing IV treatment for withdrawal Psychiatric Treatment History Psych Treatment Psychiatric Treatment Yes Inpatient Treatment Yes (alcohol detox/rehab) Outpatient Treatment Yes (IOP) Reason for Treatment Substance abuse Dates of Treatment unknown Response to Treatment Years of sobriety followed by relapse during stress Diagnosis: alcohol use disorder, severe Alcohol withdrawal Alcohol withdrawal seizures Normocytic anemia Hypokalemia Risk Factors: high anxiety/distress, history of suicide atmpts, substance abuse, male, Poor treatment alliance Substance Use/Abuse History Drug Use/Abuse Substances Used/Abused Yes (alcohol) Substance Used/Abused Alcohol First Use in 20s Last Used prior to admission How much used/taken bottle of vodka daily How often daily For how long over last 8 months Route of use oral Substance Abuse Treatment Substance Abuse Treatment Past Substance Abuse TX Yes Inpatient Treatment Yes (detox/rehabilitation) Outpatient Treatment Yes (multiple IOPs) Location of Treatment unknown Reason for Treatment Alcohol Dates of Treatment unknown Response to Treatment Years of sobriety followed by relapse under stress Assessment/Plan Mental Status Orientation: Person, Place, Situation Affect: Appropriate Speech: Normal Neuro-vegetative: Appetite Decreased, Sleep Disturbance Mental Status Exam: GENERAL: Alert and oriented x3, good eye contact, well-groomed, no apparent distress, sitting in hospital bed with sitter at bedside, nurse and just administered IV Ativan. SPEECH: Moderate rate and volume, normal prosody, fluent MOTOR: No tics, significant coarse bilateral tremor, no stereotypy, or other abnormal movements MOOD: "Better now" AFFECT: Calm, Mood congruent, good range, non-labile, well related THOUGHT PROCESS: Logical, linear and goal-directed THOUGHT CONTENT: No SI/HI/AVH/SIB, no apparent grandiosity, paranoia, delusions , obsessions, ruminations COGNITION: No apparent deficit in attention, memory or concentration JUDGMENT: Fair INSIGHT: Fair Lab Results: Laboratory Tests 11/03/17 0903: Anion Gap 5, Estimated GFR > 60, BUN/Creatinine Ratio 13.3, Magnesium 1.4 L 11/02/17 1301: Serum Alcohol 469.0 11/02/17 1301: Anion Gap 14, Estimated GFR > 60, BUN/Creatinine Ratio 8.3, Glucose 118 H, Hemoglobin A1c 5.7, Calcium 8.5, Total Bilirubin 0.2, AST 51, ALT 24, Alkaline Phosphatase 63, Troponin I 0.01, Total Protein 6.1 L, Albumin 3.5, Globulin 2.6 , Albumin/Globulin Ratio 1.3, Vitamin B12 328, Folate 7.9, CBC w Diff NO MAN DIFF REQ, RBC 3.71 L, MCV 88.6, MCH 30.5, MCHC 34.5, RDW 14.7 H, MPV 6.9 L, Gran % 51.2, Lymphocytes % 40.9, Monocytes % 5.0, Eosinophils % 2.6, Basophils % 0.3, Absolute Granulocytes 5.0, Absolute Lymphocytes 4.0 H, Absolute Monocytes 0.5, Absolute Eosinophils 0.3, Absolute Basophils 0, Urine Opiates Screen < 100, Methadone Screen < 40, Barbiturate Screen < 60, Ur Phencyclidine Scrn < 6.00, Amphetamines Screen < 100, U Benzodiazepines Scrn < 85, Urine Cocaine Screen < 50, Urine Cannabis Screen < 5.00, Urinalysis MOD H, Urine Color STRAW, Urine Clarity CLEAR, Urine pH 6.0, Ur Specific [place] <= 1.005, Urine Protein NEG, Urine Ketones NEG, Urine Nitrite NEG, Urine Bilirubin NEG, Urine Urobilinogen 0.2, Ur Leukocyte Esterase NEG, Ur Microscopic SEDIMENT EXAMINED, Urine RBC RARE , Urine Hemoglobin MOD H, Urine Glucose NEG Vital Signs Date Time Temp Pulse Resp B/P B/P Pulse O2 O2 Flow FiO2 Mean Ox Delivery Rate 11/03 1205 98.8 80 20 132/71 100 Room Air 11/03 0800 98.0 85 18 122/64 11/03 0800 98.3 88 18 122/64 11/03 0410 98.9 84 20 120/70 97 Room Air 11/03 0200 98.1 69 18 140/79 11/03 0200 98.1 69 18 140/79 94 Room Air 11/03 0000 118 18 128/70 11/02 2358 97.6 118 20 128/70 99 Room Air 11/02 2353 97.6 124 20 140/82 11/02 2326 98.0 124 20 132/90 99 Room Air 11/02 2255 98.0 130 22 144/90 11/02 2142 98.3 118 16 128/67 99 Room Air 11/02 1858 98.1 107 16 131/74 99 Room Air 11/02 1623 136/91 11/02 1442 96.9 106 15 139/97 98 Room Air Room Air Diffential Diagnosis: Alcohol use disorder, severe; alcohol withdrawal; history of alcohol withdrawal seizures; generalized anxiety disorder; unspecified depressive disorder versus substance-induced mood disorder. Impression: 62 year old male with history of alcohol use disorder with years of sobriety followed by relapse in times of stress and high anxiety currently being managed with IV Ativan for withdrawal. Patient has history of withdrawal seizures 3 which have been managed at home. It appears that during periods of sobriety patient still has high anxiety at baseline, discussed management of anxiety. Patient also endorses chronic pain, history of withdrawal seizures and alcohol cravings which would make gabapentin a reasonable choice. Would start gabapentin 300 mg 3 times a day for seizure prevention/craving prophylaxis. Would also add Atarax 25 mg every 6 hours prn anxiety. If this is too sedating may decrease to 12.5 mg. May give 50 mg at bedtime for anxiety/insomnia as needed. Would continue folate, multivitamin, and thiamine. Patient may feel more anxiety once Ativan taper is complete. Would discharge patient with gabapentin, Atarax and vitamin repletion as new home meds. Alcohol, seizure, medication and withdrawal psychoeducation provided. Please contact psychiatry consult liaison with questions 8:30 AM to 4:30 PM or on-call psychiatrist evening and weekends.
--- NOTE | 2017-11-03 18:00 | Discharge Summary ---
Hospital Course Allergies: Coded Allergies: ibuprofen (UPSETS STOMACH 04/16/16) Discharge Instructions Medications at Discharge Discharge Medications: Stop taking the following medications: LORazepam (Ativan) 1 MG TAB ORAL EVERY SIX HOURS Qty = 10
[2017-11-04] VITALS (7 sets, daily range): BP systolic 120–142; BP diastolic 70–90
--- NOTE | 2017-11-04 11:25 | PN- Housestaff ---
Kishor Queen 11/04/17 1116: Subjective Follow-up For: Alcohol withdrawal Anxiety Complaints: no complaints Tele-Events Since Last Visit: Patient is not on monitoring and evaluation advisor Subjective: The patient seated comfortably on the bed eating his breakfast he reports to eat well and he denies any nausea or vomiting. Patient reports that he wants to go home is feeling so much better but after explaining to him that he needs to continue with the Ativan taper he accepted graciously to continue to stay. Review of Systems Constitutional: Denies: chills, fever. Cardiovascular: Denies: chest pain, palpitations. Respiratory: Denies: cough, short of breath. Gastrointestinal: Denies: abdominal pain, nausea, vomiting. Genitourinary: Denies: no symptoms. Musculoskeletal: Denies: no symptoms. Objective Last 24 Hrs of Vital Signs/I&O Vital Signs Date Time Temp Pulse Resp B/P B/P Pulse O2 O2 Flow FiO2 Mean Ox Delivery Rate 11/04 0630 97.5 73 20 142/80 97 11/04 0439 97.5 73 20 142/80 97 11/04 0055 97.4 73 20 130/70 94 11/03 2000 97.6 80 20 136/80 95 Room Air 11/03 1600 97.3 69 22 150/82 100 Room Air 11/03 1205 98.8 80 20 132/71 100 Room Air 11/03 1200 98.8 80 18 132/71 Physical Exam General Appearance: Alert, Oriented X3, Cooperative, No Acute Distress Skin: No Rashes Skin Temp/Moisture Exam: Warm/Dry Sepsis Skin Exam (color): Normal for Ethnicity HEENT: Atraumatic, Mucous Membr. moist/pink Neck: Supple, No JVD Cardiovascular: Regular Rate, Normal S1, Normal S2 Lungs: Clear to Auscultation, Normal Air Movement Abdomen: Normal Bowel Sounds, Soft, No Tenderness Neurological: Normal Speech, Strength at 5/5 X4 Ext, Normal Tone Extremities: No Clubbing, No Cyanosis, No Edema Vascular: Normal Pulses Current Medications: Current Medications Sig/Leelee Start time Last Medication Dose Route Stop Time Status Admin Acetaminophen 650 MG Q6P PRN 11/03 0145 AC PO Enoxaparin Sodium 40 MG DAILY 11/03 899 AC 11/04 SC 827 Famotidine 20 MG DAILY 11/03 899 AC 11/04 PO 0828 Folic Acid 1 MG DAILY 11/03 0900 AC 11/04 PO 0828 Gabapentin 300 MG Q8 11/03 1400 AC 11/04 PO 0516 Hydroxyzine HCl 25 MG 4 TIMES/DAY 11/03 1337 AC 11/04 PO 0828 Lorazepam 1 MG Q6H 11/04 1400 AC PO Lorazepam 1.5 MG Q6H 11/03 1400 DC PO Lorazepam 1.5 MG Q6H 11/03 1400 DC 11/04 PO 0828 Lorazepam See Dose Q1P PRN 11/03 0145 AC Insts (1) IV Lorazepam 2 MG Q6H 11/03 0145 DC 11/03 PO 1326 Magnesium Oxide 400 MG BID 11/03 0145 AC 11/04 PO 0828 Multivitamins 1 TAB DAILY 11/03 0900 AC 11/04 PO 0828 Potassium Chloride 40 MEQ ONCE ONE 11/03 1345 DC 11/03 PO 11/03 1346 1524 Thiamine HCl 100 MG DAILY 11/03 0430 AC 11/04 PO 0830 Dose Instructions: (1)Lorazepam: See admin criteria Last 24 Hrs of Lab/Hal Results Last 24 Hrs of Labs/Mics: Laboratory Tests 11/04/17 0658: Anion Gap 5, Estimated GFR > 60, BUN/Creatinine Ratio 10.0, Magnesium 2.0 Orders CIWA Score (last 24 hrs): Highest CIWA OF 4 overnight CIWA around 2 Assessment/Plan Assessment: s a 62yo M w/ PMH of hx of DT 2011 s/p ICU stay, HLD, alcohol use disorders, hx of SI attempts, presented to ER w/ CC of alcohol intoxication after being sober for 5 years, who recently picked up drinking and was found unresponsive on 2017, sent to ER, discharged, continued drinking, and was readmitted again for alcohol dependence. On admission was found to have very high alcohol level 469 with negative urine toxicology. Alcohol withdrawal Patient has been on Ativan at 1.5 every 6 and has not required any as needed Ativan. We will taper the Ativan down to 1 mg every 6. Patient has been having normal heart rates and has not been agitated. We will continue with Ativan taper. Patient's understands the need to resume AA meetings postdischarge and it was reemphasized today. Will continue with folic acid and thiamine and multivitamins. Anxiety disorder Patient reports to have severe anxiety. Was seen by psychiatrist and started on gabapentin and hydroxyzine. He reports slight improvement in his anxiety. Problem List: 1. Alcohol dependence with intoxication 2. Seizure 3. ALCOHOL WITHDRAWAL Pain Ratin Pain Location: nONE Pain Goal: Remain pain free Pain Plan: PRN pain meds Tomorrow's Labs & Rationales: nONE DVT/Prophylaxis: pharmacological Shanda Wheeler MD 11/04/17 1130: Attending MD Review Statement Attending Statement Attending MD Statement: examined this patient, discuss w/resident/PA/SMOKE TESTER, agreed w/resident/PA/SMOKE TESTER, reviewed EMR data (avail), discussed with nursing, discussed with case mgmt, amended to note Attending Assessment/Plan: Patient seen and examined, overall doing much better. CIWA scores are running low. Vital signs are stable. Patient has been seen by psychiatry and they recommended adding gabapentin and Atarax. Will continue to taper his Ativan further today. As discussed with psychiatric, patient does not need a sitter. Will discontinue the sitter. Continue all the rest of the medications. DVT px; Lovenox.
[2017-11-05 06:31] VITALS: BP 130/87
[2017-11-05 08:00] VITALS: BP 130/80
--- NOTE | 2017-11-05 08:13 | PN- Housestaff ---
Romi LOPEZ,Soledad 11/05/17812: Subjective Follow-up For: Alcohol withdrawal Anxiety Subjective: Patient seen and examined. Overnight his CIWA score is 0. His vital signs are stable except for some tachycardia last night to 102. The patient has no complaints. Review of Systems Constitutional: Reports: no symptoms. Cardiovascular: Reports: no symptoms. Respiratory: Reports: no symptoms. Gastrointestinal: Reports: no symptoms. Genitourinary: Reports: no symptoms. Musculoskeletal: Reports: no symptoms. Skin: Reports: no symptoms. Objective Last 24 Hrs of Vital Signs/I&O Vital Signs Date Time Temp Pulse Resp B/P B/P Pulse O2 O2 Flow FiO2 Mean Ox Delivery Rate 11/05 1400 90 18 134/86 11/05 1354 98.5 106 20 134/86 97 Room Air 11/05 0800 90 18 130/80 11/05 0631 98.0 97 20 130/87 99 Room Air 11/04 2104 98.2 102 16 120/78 96 Room Air Intake & Output 11/05 1600 11/05 0800 11/05 0000 Intake Total 720 720 480 Output Total Balance 720 720 480 Intake, Oral 720 720 480 Physical Exam General Appearance: Alert, Oriented X3, Cooperative, No Acute Distress Skin: No Rashes Sepsis Skin Exam (color): Normal for Ethnicity Neck: Supple Cardiovascular: Regular Rate, Normal S1, Normal S2, No Murmurs Lungs: Clear to Auscultation, Normal Air Movement Abdomen: Normal Bowel Sounds, Soft, No Tenderness Neurological: Normal Speech Extremities: No Clubbing, No Cyanosis, No Edema Vascular: Normal Pulses, Pulses Symmetrical Current Medications: Current Medications Sig/Leelee Start time Last Medication Dose Route Stop Time Status Admin Acetaminophen 650 MG Q6P PRN 11/03 0145 AC PO Enoxaparin Sodium 40 MG DAILY 11/03 899 AC 11/05 SC 08 Famotidine 20 MG DAILY 11/03 0900 AC 11/05 PO 08 Folic Acid 1 MG DAILY 11/03 09 AC 11/05 PO 08 Gabapentin 300 MG Q8 11/03 1400 AC 11/05 PO 1314 Hydroxyzine HCl 25 MG 4 TIMES/DAY 11/03 1337 AC 11/05 PO 1232 Lorazepam 1 MG Q6H 11/04 1400 AC 11/05 PO 1313 Lorazepam See Dose Q1P PRN 11/03 0145 AC Insts (1) IV Magnesium Oxide 400 MG BID 11/03 0145 AC 11/05 PO 0806 Multivitamins 1 TAB DAILY 11/03 0900 AC 11/05 PO 0806 Patient Medication 1 ED ONE ONE 11/04 1500 DC 11/04 Teaching ED 11/04 1501 1712 Thiamine HCl 100 MG DAILY 11/03 0430 AC 11/05 PO 0806 Dose Instructions: (1)Lorazepam: See admin criteria Orders CIWA Score (last 24 hrs): 0 Assessment/Plan Assessment: Mr. Alicea is a 62yo M w/ PMH of hx of DT 2012 s/p ICU stay, HLD, alcohol use disorders, hx of SI attempts, presented to ER w/ CC of alcohol intoxication after being sober for 5 years, who recently pickedup drinking and was found unresponsive on 10/30/2017, sent to ER, discharged, continued drinking, and now came back. Rest of history/ROS as above HPI. Patient presented with a clinical picture of alcohol intoxication with abnormal serum alcohol level, that he might not yet be in DT phase based on this serum alcohol leve/PE, however preventive measure and appropriate alcohol detox process should start and taper per clinical course. On admission, Vitals: Stable afebrile, tachycardia above 100, RR 20, BP 142/90, 95% room air Physical exam as above. Pertinent findings include fine tremors of BUEs, however otherwise grossly normal exam. Patient's fully conversational and has insight regarding his alcohol use disorders. Denied SI. -CBC: No leukocytosis, H/H 11.3/42.8, PLT 291 -CMP: Hypokalemia 3.2, otherwise unremarkable -UA/Microbiology: Clear for UTI. Serum alcohol 469, U tox negative -CT Ab 10/30: Cholelithiasis without additional evidence for acute cholecystitis. No inflammatory changes of the abdomen or pelvis. -EKG: NSR w/o significant ST-T abnormalities, unchanged from previous. -Last Echo: Not in our system -Interventions in ER: Ativan 2 mg IV 2, Zofran IV 4 mg 1 Problem list/Assessment/Hospital Course: #Alcohol detox with history of DT #Chronic normocytic anemia, secondary to alcohol use #History of suicidal attempts #Hypokalemia #Cholelithiasis without acute cholecystitis #PMH of alcohol use disorder, hyperlipidemia - Admit to general medicine - Vitals per protocol, monitor I&O per protocol. -Decrease Ativan to 1.0 mg every 6 standing dose and IV Ativan PRN CIWA - Supplements including Folic Acid/B12/Thiamin/Multivitamin - Replete K w/ oral K-dur and magnesium with mag ox . - Continue all home meds. -As per psych, for patient's anxiety we can give him gabapentin 300 mg 3 times a day and hydroxyzine 25 mg every 6 hours which can be up titrated to 50 mg every 6 hours. -As per social work, patient states readiness for IOP (lives in [place]) and continued substance abuse treatment and resumption of AA meetings -B12 and folate acid levels normal -Seizure precautions -Pain per pathway DVT prophylaxis Lovenox + ALPS Regular Diet Full Code Problem List: 1. ALCOHOL WITHDRAWAL Pain Ratin Pain Location: na Pain Goal: Remain pain free Pain Plan: na Tomorrow's Labs & Rationales: Antoine Castillo 11/05/17 1102: Attending MD Review Statement Attending Statement Attending MD Statement: examined this patient, discuss w/resident/PA/PLANT AND MAINTENANCE TECHNICIAN, agreed w/resident/PA/PLANT AND MAINTENANCE TECHNICIAN, reviewed EMR data (avail), discussed with nursing, discussed with case mgmt Attending Assessment/Plan: Etoh abuse and intoxication. d/w pt the plan for rehab and pt prefers AA meetings or IOP. will d/w Ama the social welfare research worker and have her arrange it for the pt. Possible dc tomorrow. currenlty on ativan 1mg q6h. d/w pt the care plan.
[2017-11-05 13:54] VITALS: BP 134/86
[2017-11-05 14:00] VITALS: BP 134/86
[2017-11-05 22:05] VITALS: BP 152/93
[2017-11-06 06:57] VITALS: BP 145/102
[2017-11-06 07:33] VITALS: BP 144/88
--- NOTE | 2017-11-06 07:46 | PN- Housestaff ---
Romi LOPEZ,Soledad 11/06/17 0745: Subjective Follow-up For: Alcohol detox Anxiety Subjective: Patient seen and examined. Apparently last night the patient was found attempting to walk into other rooms and was confused. He states that he was not confused last night but instead was "woozy". The patient has been started on 2 antianxiety medications gabapentin and hydroxyzine. He states that he took gabapentin the past and never had any issues on it. His vitals overnight are stable. His CIWA score is 2-4 overnight for anxiety. Review of Systems Constitutional: Reports: no symptoms. Cardiovascular: Reports: no symptoms. Respiratory: Reports: no symptoms. Gastrointestinal: Reports: no symptoms. Genitourinary: Reports: no symptoms. Musculoskeletal: Reports: no symptoms. Neurological/Psychological: Reports: anxiety. Objective Last 24 Hrs of Vital Signs/I&O Vital Signs Date Time Temp Pulse Resp B/P B/P Pulse O2 O2 Flow FiO2 Mean Ox Delivery Rate 11/06 0733 88 144/88 11/06 0657 98.9 91 20 145/102 97 Room Air 11/05 2205 98.2 136 20 152/93 100 Room Air Intake & Output 11/06 1600 11/06 0800 11/06 0000 Intake Total 810 250 510 Output Total Balance 810 250 510 Intake, IV 10 10 10 Intake, Oral 800 240 500 Physical Exam General Appearance: Alert, Oriented X3, Cooperative, No Acute Distress Skin: No Rashes, No Breakdown, No Significant Lesion HEENT: Atraumatic, PERRLA, EOMI Cardiovascular: Regular Rate, Normal S1, Normal S2, No Murmurs Lungs: Clear to Auscultation Abdomen: Normal Bowel Sounds, Soft, No Tenderness Neurological: Normal Speech Extremities: No Clubbing, No Cyanosis, No Edema, Normal Pulses Current Medications: Current Medications Sig/Leelee Start time Last Medication Dose Route Stop Time Status Admin Acetaminophen 650 MG Q6P PRN 11/03 0145 DCD PO Enoxaparin Sodium 40 MG DAILY 11/03 899 DCD 11/06 SC 0919 Famotidine 20 MG DAILY 11/03 09 DCD 11/06 PO 0919 Folic Acid 1 MG DAILY 11/03 09 DCD 11/06 PO 0918 Gabapentin 300 MG Q8 11/03 1400 DCD 11/06 PO 0517 Hydroxyzine HCl 25 MG 4 TIMES/DAY 11/03 1337 DC 11/05 PO 2012 Lorazepam 0.5 MG Q6H 11/06 1400 DCD PO 11/11 1359 Lorazepam 0.5 MG ONE ONE 11/06 0830 DC 11/06 PO 11/06 0831 0918 Lorazepam 1 MG Q6H 11/04 1400 DC 11/06 PO 0124 Lorazepam See Dose Q1P PRN 11/03 014 DCD Insts (1) IV Magnesium Oxide 400 MG BID 11/03 014 DCD 11/06 PO 0918 Multivitamins 1 TAB DAILY 11/03 0900 DCD 11/06 PO 0919 Thiamine HCl 100 MG DAILY 11/03 0430 DCD 11/06 PO 0919 Dose Instructions: (1)Lorazepam: See admin criteria Orders CIWA Score (last 24 hrs): 2-4 Assessment/Plan Assessment: Mr. 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 Rest of history/ROS as above HPI. Patient presented with a clinical picture of alcohol intoxication with abnormal serum alcohol level, that he might not yet be in DT phase based on this serum alcohol leve/PE, however preventive measure and appropriate alcohol detox process should start and taper per clinical course. On admission, Vitals: Stable afebrile, tachycardia above 100, RR 20, BP 142/90, 95% room air Physical exam as above. Pertinent findings include fine tremors of BUEs, however otherwise grossly normal exam. Patient's fully conversational and has insight regarding his alcohol use disorders. Denied SI. -CBC: No leukocytosis, H/H 11.3/42.8, PLT 291 -CMP: Hypokalemia 3.2, otherwise unremarkable -UA/Microbiology: Clear for UTI. Serum alcohol 469, U tox negative -CT Ab 10/30: Cholelithiasis without additional evidence for acute cholecystitis. No inflammatory changes of the abdomen or pelvis. -EKG: NSR w/o significant ST-T abnormalities, unchanged from previous. -Last Echo: Not in our system -Interventions in ER: Ativan 2 mg IV 2, Zofran IV 4 mg 1 Problem list/Assessment/Hospital Course: #Alcohol detox with history of DT #Chronic normocytic anemia, secondary to alcohol use #History of suicidal attempts #Hypokalemia #Cholelithiasis without acute cholecystitis #PMH of alcohol use disorder, hyperlipidemia -Patient admitted to general medicine floors - Vitals per protocol, monitor I&O per protocol. -Decrease Ativan to .5 mg every 6 standing dose and IV Ativan PRN CIWA. The patient is to be discharged as per attending on 0.5 mg twice a day for one dose tonight and 2 doses tomorrow with instructions to then stop. The patient has been instructed to not operate any heavy machinery while he is on this Ativan and to not drink alcohol. - Supplements including Folic Acid/B12/Thiamin/Multivitamin - Replete K w/ oral K-dur and magnesium with mag ox . - Continue all home meds. -As per psych, for patient's anxiety we are giving him gabapentin 300 mg 3 times a day and hydroxyzine 25 mg every 6 hours with orders that a can be up titrated to 50 mg every 6 hours. However, as patient had an episode of confusion last night, we will discharge him only on the gabapentin and he will follow-up with the [facility] intensive outpatient practitioners. -As per social work, patient states readiness for IOP (lives in [place]) and continued substance abuse treatment and resumption of AA meetings -B12 and folate acid levels normal -Seizure precautions DVT prophylaxis Lovenox + ALPS Regular Diet Full Code Problem List: 1. ALCOHOL WITHDRAWAL Pain Ratin Pain Location: n a Pain Goal: Remain pain free Pain Plan: na Tomorrow's Labs & Rationales: none Antoine French 11/06/17 1032: Attending MD Review Statement Attending Statement Attending MD Statement: examined this patient, discuss w/resident/PA/DOCENT COORDINATOR, agreed w/resident/PA/DOCENT COORDINATOR, reviewed EMR data (avail), discussed with nursing, discussed with case mgmt Attending Assessment/Plan: Etoh abuse and intoxication. d/w pt the plan for rehab and pt prefers AA meetings or IOP. will d/w Ama the manager social media and have her arrange it for the pt. Tapered ativan to 0.5mg q6 and will give 0.5mg po bid for tomorrow. Plan dc today with po ativan prescription for tomorrow. dw pt the care plan. pt is going back to work on Friday.
[2017-11-06] MEDS ORDERED: GABAPENTIN300 M2 PO ×2 (08:54→10:53)
[2017-11-06] MEDS ORDERED: VITAMIN B-1100 MG PO ×2 (08:54→10:53)
[2017-11-06] MEDS ORDERED: FOLIC ACID1 M1 PO ×2 (08:54→10:53)
--- NOTE | 2017-11-06 08:56 | Patient Discharge Instructions ---
Discharge Instructions General Discharge Information You were seen/treated for: ALCOHOL DETOX Special Instructions: PLEASE FOLLOW UP WITH PCP IN ONE WEEK PLEASE FOLLOW UP WITH IOP AND AA [facility] Diet Continue normal diet: Yes Activity Full Activity/No Limits: Yes Acute Coronary Syndrome Inclusion Criteria At DC or during hospital stay patient has or had the following: ACS DIAGNOSIS No Discharge Core Measures Meds if any: Prescribed or Continued at Discharge Meds if any: NOT Prescribed or Continued at Discharge Congestive Heart Failure Inclusion Criteria At DC or during hospital stay patient has or had the following: CHF DIAGNOSIS No Discharge Core Measures Meds if any: Prescribed or Continued at Discharge Meds if any: NOT Prescribed or Continued at Discharge Cerebrovascular accident Inclusion Criteria At DC or during hospital stay patient has or had the following: CVA/TIA Diagnosis No Discharge Core Measures Meds if any: Prescribed or Continued at Discharge Meds if any: NOT Prescribed or Continued at Discharge Venous thromboembolism Inclusion Criteria VTE Diagnosis No VTE Type NONE VTE Confirmed by (Test) NONE Discharge Core Measures - Per Current guidelines, there needs to be overlap - treatment for the first 5 days of Warfarin therapy. - If discharged on Warfarin prior to 5 days of - overlap therapy, the patient will need to be - assessed for post discharge needs including - *Post discharge parental anticoagulation - *Warfarin and/or parental anticoagulation education - *Follow up date to check INR post discharge At least 5 days overlap therapy as Inpatient No Meds if any: Prescribed or Continued at Discharge Note: Overlap Therapy is Warfarin and Anticoagulant Meds if any: NOT Prescribed or Continued at Discharge
[2017-11-06] MEDS ORDERED: ATIVAN0.5 M1 PO (10:52)
== END 2017-11-06 13:12 | DRG 897 ==
LOC: ERH 12:42 → ERHI 23:43 → 2NB 23:43 → ENRESERV 11-03 02:43 → 2NB 11-03 03:33 → ENTRNSPT 11-06 12:57 → EDTRNSPTSTS 11-06 13:04 → EDTRNSPT 11-06 13:04 → 2NB 11-06 13:12 → CMPTRNSPT 11-06 13:37
PROVIDERS: Emergency Medicine
PROC: HZ2ZZZZ Detoxification Services for Substance Abuse Treatment (ICD-10-PCS; principal; 2017-11-02)
DX: F10.239 Alcohol dependence with withdrawal, unspecified (principal); Z91.5 Personal history of self-harm; F10.229 Alcohol dependence with intoxication, unspecified; E78.5 Hyperlipidemia, unspecified; Y90.8 Blood alcohol level of 240 mg/100 ml or more; E87.6 Hypokalemia; D64.9 Anemia, unspecified; K80.20 Calculus of gallbladder without cholecystitis without obstruction; E83.42 Hypomagnesemia; F39 Unspecified mood [affective] disorder; F41.1 Generalized anxiety disorder
CPT/HCPCS: 2NBP; ERO; 36415; 80307; 81001; 82436; 93005; 93010; 96374; 96375; G0480; J1650; J2405; J3490